=== PATIENT | male | born 1985 | race Hispanic/Latino ===

== ENCOUNTER 2021-03-17 03:10 | Emergency (ER) | payer OTHER ==
[~2021-03-17] VITALS: Ht 167.6 cm; Wt 63.5 kg
[2021-03-17 03:12] VITALS: BP 119/61
[2021-03-17 04:55] VITALS: BP 127/66
[2021-03-17] MEDS ORDERED: IBUPROFEN 600 MG TABLET PO ONE (05:15)
[2021-03-17] MEDS ORDERED: TETANUS/DIPHTHERIA TOXOID [ADULT] 0.5 ML VIAL IM ONE (05:15)
[2021-03-17] MEDS ORDERED: IBUP-2070 PO (05:16)
== END 2021-03-17 05:32 | disposition home or self-care (01) ==
LOC: EDH 03:10
DX: S91.011A Laceration without foreign body, right ankle, initial encounter (principal); W25.XXXA Contact with sharp glass, initial encounter; Y93.89 Activity, other specified; Y92.89 Other specified places as the place of occurrence of the external cause; Y99.8 Other external cause status
CPT/HCPCS: 12001; 73600; 90471; 90714

== ENCOUNTER 2021-03-21 21:59 | Emergency (ER) | payer OTHER ==
[~2021-03-21] VITALS: Ht 160 cm; Wt 57.6 kg
[~2021-03-21 21:59] MED LIST: IBUP-2070 PO
[2021-03-21 22:09] VITALS: BP 121/84
[2021-03-21] MEDS ORDERED: 0.9%NACL 1000ML 1,000 ML IV ONE ×2 (22:30)
[2021-03-21] MEDS ORDERED: FAMOTIDINE 20MG VIAL IV ONE (22:30)
[2021-03-21] MEDS ORDERED: ONDANSETRON 4MG INJ IVP ONE (22:30)
[2021-03-21 22:37] LABS: BASOPHILS % (AUTO) 0.6 % (0.0-5.0); EOSINOPHILS % (AUTO) 0.2 % (0.0-8.0); HEMATOCRIT 52.7 % (42-54); LYMPHOCYTES % (AUTO) 8.5 % (21.0-51.0); MEAN CORPUSCULAR HEMOGLOBIN 30.7 pg (27.0-33.0); MEAN CORPUSCULAR VOLUME 90.2 fL (79-99); MONOCYTES % (AUTO) 6.1 % (3.0-13.0); PLATELET COUNT (AUTO) 348 K/uL (130-400); RED BLOOD CELL COUNT(AUTO) 5.84 MIL/uL (4.50-6.20); WHITE BLOOD COUNT (AUTO) 18.7 K/uL (4.8-10.8)
[2021-03-21 22:42] LABS: CREATININE 2.9 mg/dL (0.5-1.5); POTASSIUM 4.5 mmol/L (3.5-5.1)
[2021-03-21 22:47] LABS: ALBUMIN 5.7 g/dL (3.5-5.0); BILIRUBIN,TOTAL 0.4 mg/dL (0.2-1.0); TOTAL PROTEIN, SERUM 10.8 g/dL (6.0-8.3)
[2021-03-22] MEDS ORDERED: ONDA4TAB10 PO (00:29)
[2021-03-22] MEDS ORDERED: FAMO-136 PO (00:29)
== END 2021-03-22 00:50 | disposition home or self-care (01) ==
LOC: EDH 21:59
DX: T67.5XXA Heat exhaustion, unspecified, initial encounter (principal); R11.2 Nausea with vomiting, unspecified; R10.9 Unspecified abdominal pain; Z79.899 Other long term (current) drug therapy; X58.XXXA Exposure to other specified factors, initial encounter; Y93.89 Activity, other specified; Y92.89 Other specified places as the place of occurrence of the external cause; Y99.8 Other external cause status
CPT/HCPCS: 36415; 71045; 80053; 82550; 84484; 85025; 93005; 96361; 96374; 96375; 99285; J2405; J3490; J7030

== ENCOUNTER 2022-05-14 07:20 | Observation (INO) | payer OTHER ==
[~2022-05-14] VITALS: Ht 160 cm; Wt 67.0 kg
[2022-05-14] VITALS (25 sets, daily range): BP systolic 96–133; BP diastolic 56–81
[~2022-05-14 07:20] MED LIST changes: +FAMO-136 PO; +ONDA4TAB10 PO
[2022-05-14] MEDS ORDERED: ONDANSETRON 4MG INJ IVP ONE (08:00)
[2022-05-14] MEDS ORDERED: KETOROLAC 30MG VIAL (30MG/ML) IVP ONE (08:00)
[2022-05-14] MEDS ORDERED: 0.9%NACL 1000ML 1,000 ML IV ONE (08:00)
[2022-05-14 08:21] LABS: ALBUMIN 4.3 g/dL (3.5-5.0); CREATININE 0.8 mg/dL (0.5-1.5); POTASSIUM 3.6 mmol/L (3.5-5.1); TOTAL PROTEIN, SERUM 7.8 g/dL (6.0-8.3)
[2022-05-14 08:30] LABS: BASOPHILS % (AUTO) 0.5 % (0.0-5.0); EOSINOPHILS % (AUTO) 0.3 % (0.0-8.0); HEMATOCRIT 41.1 % (42-54); MEAN CORPUSCULAR HEMOGLOBIN 30.9 pg (27.0-33.0); MEAN CORPUSCULAR HGB CONC 34.3 g/dL (32.0-36.0); MEAN CORPUSCULAR VOLUME 89.9 fL (79-99); MONOCYTES % (AUTO) 4.2 % (3.0-13.0); NEUTROPHILS % (AUTO) 86.6 % (40.0-77.0); PLATELET COUNT (AUTO) 252 K/uL (130-400); RED BLOOD CELL COUNT(AUTO) 4.57 MIL/uL (4.50-6.20); RED CELL DISTRIBUTION WIDTH 12.7 % (11.0-15.5); WHITE BLOOD COUNT (AUTO) 11.4 K/uL (4.8-10.8)
[2022-05-14] MEDS ORDERED: MORPHINE 2 MG SYG IV PRN (10:00)
[2022-05-14] MEDS ORDERED: ONDANSETRON 4MG INJ IV PRN (10:00)
[2022-05-14] MEDS ORDERED: MORPHINE 4 MG SYG IV PRN (10:00)
[2022-05-14] MEDS: ZOSYN 3.375GM +NS 50ML IV SCH ×2 (10:00→13:00)
[2022-05-14 10:57] LABS: APPEARANCE,URINE CLEAR (CLEAR); BILIRUBIN,URINE NEGATIVE (NEGATIVE); COLOR,URINE YELLOW (YELLOW); GLUCOSE, URINE (UA) NEGATIVE (NEGATIVE); KETONES,URINE NEGATIVE (NEGATIVE); LEUKOCYTE ESTERASE ,URINE NEGATIVE (NEGATIVE); NITRATE,URINE NEGATIVE (NEGATIVE); OCCULT BLOOD,URINE NEGATIVE (NEGATIVE); PROTEIN,URINE NEGATIVE (NEGATIVE); UROBILINOGEN,URINE 0.2 mg/dL (0.2-1.0)
[2022-05-14] MEDS ORDERED: LIDOCAINE PF 100MG/5ML (2%) SYRINGE 5ML ONE (11:59)
[2022-05-14] MEDS ORDERED: MIDAZOLAM HCL 1 MG/ML 2ML VIAL ONE (12:00)
[2022-05-14] MEDS ORDERED: CEFAZOLIN SODIUM 1 GM VIAL ONE (12:01)
[2022-05-14] MEDS ORDERED: FENTANYL CITRATE PF 50 MCG/1 ML 2ML VIAL ONE ×2 (12:01→13:00)
[2022-05-14] MEDS ORDERED: ROCURONIUM 10MG/1ML SYR 10 MG/ML ML ONE (12:01)
[2022-05-14] MEDS ORDERED: PROPOFOL 10 MG/ML 20ML VIAL IV ONE (12:01)
[2022-05-14] MEDS ORDERED: SUCCINYLCHOLINE CHLORIDE 20 MG/ML 10 ML VIAL ONE (12:03)
[2022-05-14] MEDS ORDERED: LIDOCAINE 1%-EPI 1:100,000 20 ML VIAL IJ ONE (12:09)
[2022-05-14] MEDS ORDERED: BUPIVACAINE/PF 0.25% 30ML VIAL IJ ONE (12:09)
[2022-05-14] MEDS ORDERED: DEXAMETHASONE SOD PHOSPHATE 10MG/ML 1ML VIAL ONE (12:46)
[2022-05-14] MEDS ORDERED: ONDANSETRON 4MG INJ ONE (12:47)
[2022-05-14] MEDS ORDERED: KETOROLAC 30MG VIAL (30MG/ML) ONE (12:48)
[2022-05-14] MEDS: ZOSYN 3.375GM+NS 50ML 50 ML IV SCH ×2 (13:00→20:24)
[2022-05-14] MEDS ORDERED: NEOSTIGMINE 5MG/5ML SYR IV ONE (13:09)
[2022-05-14] MEDS ORDERED: GLYCOPYRROLATE 1 MG/5 ML SYRINGE ONE (13:09)
[2022-05-14] MEDS ORDERED: SUGAMMADEX SODIUM 200 MG/2 ML VIAL IV ONE (13:25)
[2022-05-14] MEDS ORDERED: MEPERIDINE-PF 25 MG/ML SYG ONE (13:50)
[2022-05-14] MEDS: 0.9%NACL 1000ML 1,000 ML IV SCH ×2 (18:22→20:00)
[2022-05-14] MEDS: FAMOTIDINE 20MG VIAL IV SCH (20:24)
[2022-05-14] MEDS ORDERED: MAGNESIUM CITRATE 296 ML SOLUTION PO SCH (20:30)
[2022-05-15 00:15] VITALS: BP 93/52
[2022-05-15] MEDS: ZOSYN 3.375GM+NS 50ML 50 ML IV SCH ×2 (04:28→13:50)
[2022-05-15 04:33] VITALS: BP 98/51
[2022-05-15 04:41] LABS: BASOPHILS % (AUTO) 0.2 % (0.0-5.0); HEMATOCRIT 34.4 % (42-54); LYMPHOCYTES % (AUTO) 5.9 % (21.0-51.0); MEAN CORPUSCULAR HEMOGLOBIN 30.6 pg (27.0-33.0); MEAN CORPUSCULAR HGB CONC 34.3 g/dL (32.0-36.0); MEAN CORPUSCULAR VOLUME 89.4 fL (79-99); MONOCYTES % (AUTO) 5.8 % (3.0-13.0); NEUTROPHILS % (AUTO) 87.6 % (40.0-77.0); PLATELET COUNT (AUTO) 243 K/uL (130-400); RED BLOOD CELL COUNT(AUTO) 3.85 MIL/uL (4.50-6.20); RED CELL DISTRIBUTION WIDTH 12.8 % (11.0-15.5); WHITE BLOOD COUNT (AUTO) 10.2 K/uL (4.8-10.8)
[2022-05-15 04:59] LABS: CREATININE 0.6 mg/dL (0.5-1.5)
[2022-05-15] MEDS: 0.9%NACL 1000ML 1,000 ML IV SCH (05:05)
[2022-05-15 08:00] VITALS: BP 88/53
[2022-05-15] MEDS: FAMOTIDINE 20MG VIAL IV SCH (08:54)
[2022-05-15 12:00] VITALS: BP 96/58
[2022-05-15] MEDS ORDERED: MAGNESIUM CITRATE 296 ML SOLUTION PO SCH (12:30)
[2022-05-15] MEDS ORDERED: KETOROLAC 30MG VIAL (30MG/ML) IVP PRN (12:30)
[2022-05-15] MEDS ORDERED: OXYCODONE/ACETAMIN 5/325MG TAB PO PRN (12:30)
[2022-05-15 16:00] VITALS: BP 92/63
== END 2022-05-15 18:50 | disposition home or self-care (01) ==
LOC: EDH 07:20 → INTOOBSV 07:21 → EDHIP 07:21 → 3DH 11:33
PROVIDERS: ADMIT Internal Medicine; ATTEND Internal Medicine
DX: K35.80 Unspecified acute appendicitis (principal); Z20.822 Contact with and (suspected) exposure to COVID-19; K59.00 Constipation, unspecified; R11.2 Nausea with vomiting, unspecified; E87.8 Other disorders of electrolyte and fluid balance, not elsewhere classified
CPT/HCPCS: 44970; 96361 ×2; 96365; 96366 ×2; 96375; 99284; 80053; 83690; 85025 ×2; 81003; 36415 ×2; 87635; 74176; 96376; 80048; J7030; A4452; A4344; J3490 ×5; J3010 ×2; J0690; J1100; J2710; J0330; J2001; J2250; J2704; J2405 ×2; J1885 ×3; J2543 ×5; J2175; C1769 ×3; A4649 ×5; A4930; G0378 ×5